=== PATIENT | male | born 1985 ===

== ENCOUNTER 2022-01-21 08:54 | Day surgery (SDC) | payer OTHER ==
[~2022-01-21] VITALS: Ht 188 cm; Wt 101.9 kg
[2022-01-21 10:10] VITALS: BP 132/92; PULSE 72; TEMP 98.1
[2022-01-21] MEDS ORDERED: NORCO 325 MG-51 TAB PO (14:02)
[2022-01-21 14:13] VITALS: TEMP 97.6
[2022-01-21 14:30] VITALS: BP 135/85; PULSE 79
--- NOTE | 2022-01-21 14:30 | NUR ---
PATIENT RETURNS TO ROOM 6 PER CART FROM PACU ACCOMPANIED BY TANIA OWUSU. AWAKE AND ALERT. TEMP 97.2. IV FLUIDS INFUSING. BANDAIDS X3 DRY ON ABDOMEN AND SCROTAL SUPPORT IN PLACE. DENIES PAIN OR NAUSEA. TOLERATES ICE CHIPS. SPOUSE IN ROOM. CALL LIGHT IN REACH.
--- NOTE | 2022-01-21 14:35 | NUR ---
ASSISTED UP TO THE BATHROOM AND VOIDS. GAIT STEADY AND TOLERATES ACTIVITY WELL.
[2022-01-21 14:45] VITALS: BP 121/80; PULSE 86
--- NOTE | 2022-01-21 14:45 | NUR ---
EATING PUDDING AND TOAST. DENIES NAUSEA.
[2022-01-21 15:00] VITALS: BP 119/88; PULSE 74
--- NOTE | 2022-01-21 15:00 | NUR ---
STATES THAT HE IS READY FOR PAIN PILL AND TO BE DISCHARGED HOME. STATES THEY HAVE AN HOUR COUMUTE TO HOME.
[2022-01-21 15:02] VITALS: BP 135/85; PULSE 88
--- NOTE | 2022-01-21 15:12 | NUR ---
MEDICATED WITH NORCO 5MG ONE TAB IN PREPARATION FOR CAR RIDE HOME.
--- NOTE | 2022-01-21 15:30 | NUR ---
IV DISCONTINUED AND SITE IS FREE OF REDNESS OR SWELLING. PATIENT DRESSES SELF. SPOUSE REMAINS IN THE ROOM.
--- NOTE | 2022-01-21 15:39 | NUR ---
DISMISSAL INSTRUCTIONS GIVEN AND VOICES UNDERSTANDING OF THESE.
--- NOTE | 2022-01-21 15:45 | NUR ---
PATIENT DISMISSED TO HOME DRIVEN BY SPOUSE PER PRIVATE VEHICLE AND TAKEN TO THE FRONT DOOR PER WHEELCHAIR AND ASSISTED INTO VEHICLE BY TANIA OWUSU WITH DISMISSAL INSTRUCTIONS IN HAND.
== END 2022-01-21 15:45 | disposition home or self-care (01) ==
LOC: SDCO 08:54
DX: K40.20 Bilateral inguinal hernia, without obstruction or gangrene, not specified as recurrent (principal); F17.210 Nicotine dependence, cigarettes, uncomplicated
CPT/HCPCS: C1781; J0690; J1100; J1885; J2405; J2704; J3010; J7120